=== PATIENT | male | born 1960 | race Native Hawaiian/Other Pacific Islander ===

== ENCOUNTER → 2023-08-04 | Outpatient (CLI) | payer MEDICARE ==
--- NOTE | 2023-08-14 08:35 | MR ---
EXAMINATION TYPE: MR neck wo/w con DATE OF EXAM: 08/04/2023 10:31 PM CLINICAL INDICATION:Male, 63 years old with history of C44.90; PHH, Sweat Gland in neck removed on COMPARISON: None. TECHNIQUE: Multi planar, multi sequence imaging was performed of the neck soft tissues. MR contrast: IV Contrast: 8ml cc Gadavist FINDINGS: The glottis appears unremarkable. Several nonenlarged anterior chain lymph nodes are iden tified. There is no evidence to suggest a soft tissue mass. There is significant based. Thickening in the left maxillary sinus. The cervical vertebral bodies have preserved heights and alignment. Multilevel disc desiccation and anterior osteophytosis are present. The cervical spinal cord demonstrates a normal appearance. IMPRESSION: 1. No definitive evidence for soft tissue mass or lymphadenopathy. 2. Moderate left maxillary sinus mucosal thickening.
== END | disposition home or self-care (01) ==
LOC: RADMRIMAIN 21:30
PROVIDERS: ATTEND Otolaryngology
DX: J34.89 Other specified disorders of nose and nasal sinuses (principal); C44.90 Unspecified malignant neoplasm of skin, unspecified
CPT/HCPCS: 70543; A9585

== ENCOUNTER → 2024-03-09 | Outpatient (CLI) | payer MEDICARE ==
--- NOTE | 2024-03-09 10:01 | MR ---
INDICATION: Patient age:Male; 63 years old; Reason for study: R22.1 MASS IN NECK; PHH. 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 COMPARISON: MR neck 08/04/2023. TECHNIQUE: Multi planar, multi sequence imaging was performed of the neck soft tissues. The patient was given 7 cc of Gadavist intravenously. FINDINGS: The glottis appears unremarkable. No pathologically enlarged lymph nodes greater than 1 c m short axis. There is no evidence to suggest a soft tissue mass. No organized fluid collection demo nstrated. The vasculature appears patent. No abnormal contrast enhancement. The cervical vertebral bodies do have preserved heights and alignment. Multilevel disc desiccation a nd anterior osteophytosis are present. The cervical spinal cord demonstrates a normal appearance. IMPRESSION: No evidence of recurrence or abnormal contrast enhancement. No visualized lymphadenopathy.
== END | disposition home or self-care (01) ==
LOC: RADMRIMAIN 06:37
PROVIDERS: ATTEND Student in an Organized Health Care Education/Training Program
DX: R22.1 Localized swelling, mass and lump, neck (principal)
CPT/HCPCS: 70543; A9585

== ENCOUNTER → 2024-08-31 | Outpatient (CLI) | payer MEDICARE ==
[2024-08-31 10:27] LABS: Microalbumin Creatinine Ratio <19 mg/g Cr (0-30); Urine Creatinine 64.2 mg/dL (39.0-259.0)
[2024-08-31 10:35] LABS: ALT 26 U/L (10-49); AST 22 U/L (14-35); Albumin 4.5 g/dL (3.8-4.9); Albumin/Globulin Ratio 1.67 Ratio (1.60-3.17); Alkaline Phosphatase 57 U/L (41-126); Blood Urea Nitrogen 12.8 mg/dL (9.0-27.0); Calcium 9.7 mg/dL (8.7-10.3); Carbon Dioxide 26.5 mmol/L (21.6-31.8); Chloride 104 mmol/L (96-109); Chol/HDL Ratio 3.18 Ratio; Globulin 2.7 g/dL (1.6-3.3); Glucose 174 mg/dL (70-110); LDL Cholesterol,Calculated 50.3 mg/dL (0.0-131.0); Potassium 4.7 mmol/L (3.5-5.5); Sodium 139 mmol/L (135-145); Total Bilirubin 0.5 mg/dL (0.3-1.2); Total Protein 7.2 g/dL (6.2-8.2)
== END | disposition home or self-care (01) ==
LOC: LABWHC1 07:25
PROVIDERS: ATTEND Internal Medicine Endocrinology, Diabetes & Metabolism
DX: E11.65 Type 2 diabetes mellitus with hyperglycemia (principal)
CPT/HCPCS: 36415; 80053; 80061; 82043; 82570; 83036; 84443